=== PATIENT | female | born 1995 | race African-American/Black ===

== ENCOUNTER 2017-09-05 03:13 | Emergency (ER) | payer OTHER ==
[~2017-09-05] VITALS: Ht 170.2 cm; Wt 128.8 kg
[2017-09-05] MEDS ORDERED: FERRAPLUS 90 PO (03:25)
[2017-09-05] MEDS ORDERED: PROAIR HFA108 MCG/AC IN (03:25)
[2017-09-05] MEDS ORDERED: PROVENTIL HFA IN (03:39)
--- NOTE | 2017-09-05 03:57 | NUR ---
BREATHING TREATMENT GIVEN FOR SHORTNESS OF BREATH. BREATHING TECH. FOR GOOD DEPOSITION TO THE LUNGS.
[2017-09-05 05:16] VITALS: BP 124/78
== END 2017-09-05 04:10 | disposition home or self-care (01) | DRG 203 ==
LOC: ED 03:13
DX: J45.901 Unspecified asthma with (acute) exacerbation (principal); R05 Cough; R06.02 Shortness of breath

== ENCOUNTER 2017-11-29 21:28 | Emergency (ER) | payer OTHER ==
[~2017-11-29] VITALS: Ht 170.2 cm; Wt 126.8 kg
[~2017-11-29 21:28] MED LIST: FERRAPLUS 90 PO; PROAIR HFA108 MCG/AC IN; PROVENTIL HFA IN
[2017-11-29 22:17] LABS: URINE BILIRUBIN - DIPSTICK NEGATIVE (NEGATIVE); URINE BLOOD DIPSTICK NEGATIVE (NEGATIVE); URINE COLOR YELLOW; URINE GLUCOSE - DIPSTICK NEGATIVE (NEGATIVE); URINE KETONE NEGATIVE (NEGATIVE); URINE LEUK ESTERASE NEGATIVE (NEGATIVE); URINE NITRITE - DIPSTICK NEGATIVE (Negative); URINE PH 6.5 (4.5-8.0); URINE PROTEIN - DIPSTICK NEGATIVE (NEG-TRACE); URINE SPECIFIC GRAVITY >=1.030; URINE UROBILINOGEN - DIPSTICK 0.2 E.U./dL (0.2)
[2017-11-29 22:20] LABS: URINE CLARITY CLEAR
[2017-11-29 22:41] LABS: HEMATOCRIT 36.9 % (37.0-47.0); HEMOGLOBIN 11.6 g/dl (12.0-16.0); IMMATURE GRANULOCYTES 0.4 % (0.0-1.0); MEAN CELL VOLUME 95.8 fL CALC (80.0-100.0); MEAN CORPUSCULAR HGB 30.1 pG CALC (26.0-32.0); MEAN CORPUSCULAR HGB CONC 31.4 g/L CALC (32.0-36.0); NEUT# 3.29 thou/uL (2.00-7.15); RED BLOOD COUNT 3.85 mill/uL (4.20-5.60); RED CELL DISTRI WIDTH 12.9 % (11.5-15.5)
[2017-11-29 22:50] LABS: ALKALINE PHOSPHATASE 98 u/l (38-126); ANION GAP 17 (6-22 (CALC)); BILIRUBIN, TOTAL 0.4 mg/dL (0.0-1.4); BUN 16 mg/dL (7-17); BUN/CREATININE RATIO 18 (12-20 (CALC)); CARBON DIOXIDE 24 mmol/l (22-30); CHLORIDE 106 mmol/l (95-108); CREATININE 0.9 mg/dL (0.5-1.0); GFR > 60 ML/MIN (>=60 (CALC)); GFR FOR AFR.AMER. > 60 ML/MIN (>=60 (CALC)); POTASSIUM 4.2 mmol/l (3.5-5.1); SGOT/AST 24 u/l (14-36); SGPT/ALT 38 u/l (9-52); SODIUM 143 mmol/l (137-146); TOTAL PROTEIN 7.6 g/dL (6.3-8.2)
[2017-11-30] MEDS ORDERED: FLEXERIL PO (00:34)
[2017-11-30] MEDS ORDERED: ULTRAM50 M1 PO (00:34)
[2017-11-30 00:40] VITALS: BP 108/52
== END 2017-11-30 00:48 | disposition home or self-care (01) | DRG 552 ==
LOC: ED 21:28
PROVIDERS: Emergency Medicine
DX: M47.816 Spondylosis without myelopathy or radiculopathy, lumbar region (principal); J45.909 Unspecified asthma, uncomplicated; M51.36 Other intervertebral disc degeneration, lumbar region

== ENCOUNTER 2019-02-06 16:02 | Emergency (ER) | payer SELFPAY ==
[~2019-02-06] VITALS: Ht 170.2 cm; Wt 110.0 kg
[~2019-02-06 16:02] MED LIST changes: +FLEXERIL PO; +ULTRAM50 M1 PO
[2019-02-06 17:00] LABS: HEMATOCRIT 35.1 % (37.0-47.0); HEMOGLOBIN 10.8 g/dl (12.0-16.0); IMMATURE GRANULOCYTES 0.3 % (0.0-5.0); MEAN CELL VOLUME 94.4 fL CALC (80.0-100.0); MEAN CORPUSCULAR HGB CONC 30.8 g/L CALC (32.0-36.0); NEUT# 2.81 thou/uL (2.00-7.15); RED BLOOD COUNT 3.72 mill/uL (4.20-5.60); RED CELL DISTRI WIDTH 13.3 % (11.5-15.5)
[2019-02-06 17:01] LABS: URINE BILIRUBIN - DIPSTICK NEGATIVE (NEGATIVE); URINE BLOOD DIPSTICK NEGATIVE (NEGATIVE); URINE COLOR YELLOW; URINE GLUCOSE - DIPSTICK NEGATIVE (NEGATIVE); URINE KETONE NEGATIVE (NEGATIVE); URINE LEUK ESTERASE TRACE (NEGATIVE); URINE NITRITE - DIPSTICK NEGATIVE (Negative); URINE PROTEIN - DIPSTICK NEGATIVE (NEG-TRACE); URINE SPECIFIC GRAVITY 1.025; URINE UROBILINOGEN - DIPSTICK 0.2 E.U./dL (0.2)
[2019-02-06 17:19] LABS: ALKALINE PHOSPHATASE 96 u/l (38-126); ANION GAP 13 (6-22 (CALC)); BILIRUBIN, TOTAL 0.3 mg/dL (0.0-1.4); BUN 12 mg/dL (7-17); BUN/CREATININE RATIO 17 (12-20 (CALC)); CARBON DIOXIDE 25 mmol/l (22-30); CHLORIDE 107 mmol/l (95-108); CREATININE 0.7 mg/dL (0.5-1.0); GFR > 60 ML/MIN (>=60 (CALC)); GFR FOR AFR.AMER. > 60 ML/MIN (>=60 (CALC)); LIPASE 52 u/l (23-300); POTASSIUM 4.3 mmol/l (3.5-5.1); SGOT/AST 25 u/l (14-36); SODIUM 141 mmol/l (137-146); TOTAL PROTEIN 7.2 g/dL (6.3-8.2)
[2019-02-06] MEDS ORDERED: ZOFRAN4 MG/TAB PO (17:37)
[2019-02-06 17:41] VITALS: BP 121/82
== END 2019-02-06 17:46 | disposition home or self-care (01) | DRG 563 ==
LOC: ED 16:02
DX: S39.011A Strain of muscle, fascia and tendon of abdomen, initial encounter (principal); R11.0 Nausea; X58.XXXA Exposure to other specified factors, initial encounter

== ENCOUNTER 2019-02-27 23:01 | Emergency (ER) | payer OTHER ==
[~2019-02-27] VITALS: Ht 170.2 cm; Wt 132.2 kg
[~2019-02-27 23:01] MED LIST changes: +ZOFRAN4 MG/TAB PO
[2019-02-28 01:45] VITALS: BP 134/81
== END 2019-02-28 01:45 | disposition home or self-care (01) | DRG 552 ==
LOC: ED 23:01
DX: M54.5 Low back pain (principal); G89.29 Other chronic pain; V49.40XA Driver injured in collision with unspecified motor vehicles in traffic accident, initial encounter

== ENCOUNTER 2019-04-22 08:56 | Emergency (ER) | payer SELFPAY ==
[~2019-04-22] VITALS: Ht 170.2 cm; Wt 131.4 kg
[2019-04-22] MEDS ORDERED: PROVENTIL108 MCG/AC IN (09:26)
[2019-04-22] MEDS ORDERED: ZITHROMAX250 MG PO (09:26)
[2019-04-22] MEDS ORDERED: ONDANSETRON4 MG PO (09:26)
[2019-04-22 10:12] VITALS: BP 141/61
== END 2019-04-22 10:05 | disposition home or self-care (01) | DRG 203 ==
LOC: ED 08:56
DX: J45.909 Unspecified asthma, uncomplicated (principal); R07.81 Pleurodynia; R11.2 Nausea with vomiting, unspecified

== ENCOUNTER 2019-05-12 08:05 | Emergency (ER) | payer OTHER ==
[~2019-05-12] VITALS: Ht 170.2 cm; Wt 125.0 kg
[~2019-05-12 08:05] MED LIST changes: +ONDANSETRON4 MG PO; +PROVENTIL108 MCG/AC IN; +ZITHROMAX250 MG PO
[2019-05-12] MEDS ORDERED: NAPROXEN500 MG PO ×2 (10:17→13:11)
[2019-05-12 10:33] VITALS: BP 118/68
== END 2019-05-12 10:25 | disposition home or self-care (01) | DRG 552 ==
LOC: ED 08:05
DX: S13.9XXA Sprain of joints and ligaments of unspecified parts of neck, initial encounter (principal); S33.5XXA Sprain of ligaments of lumbar spine, initial encounter; V49.40XA Driver injured in collision with unspecified motor vehicles in traffic accident, initial encounter

== ENCOUNTER 2019-06-17 21:11 | Emergency (ER) | payer SELFPAY ==
[~2019-06-17] VITALS: Ht 170.2 cm; Wt 132.2 kg
[~2019-06-17 21:11] MED LIST changes: +NAPROXEN500 MG PO
[2019-06-17 21:51] LABS: URINE BILIRUBIN - DIPSTICK NEGATIVE (NEGATIVE); URINE BLOOD DIPSTICK TRACE-INTACT (NEGATIVE); URINE COLOR YELLOW; URINE GLUCOSE - DIPSTICK NEGATIVE (NEGATIVE); URINE KETONE NEGATIVE (NEGATIVE); URINE LEUK ESTERASE NEGATIVE (NEGATIVE); URINE NITRITE - DIPSTICK NEGATIVE (Negative); URINE PH 5.5 (4.5-8.0); URINE PROTEIN - DIPSTICK NEGATIVE (NEG-TRACE); URINE SPECIFIC GRAVITY >=1.030; URINE UROBILINOGEN - DIPSTICK 0.2 E.U./dL (0.2)
[2019-06-17 21:56] LABS: HEMATOCRIT 35.9 % (37.0-47.0); HEMOGLOBIN 11.5 g/dl (12.0-16.0); IMMATURE GRANULOCYTES 0.5 % (0.0-5.0); MEAN CELL VOLUME 93.7 fL CALC (80.0-100.0); NEUT# 2.91 thou/uL (2.00-7.15); RED BLOOD COUNT 3.83 mill/uL (4.20-5.60)
[2019-06-17 22:06] LABS: ALBUMIN 3.8 g/dL (3.2-5.0); ALKALINE PHOSPHATASE 93 u/l (38-126); AMYLASE 63 u/l (30-110); ANION GAP 12 (6-22 (CALC)); BILIRUBIN, TOTAL 0.3 mg/dL (0.0-1.4); BUN 13 mg/dL (7-17); BUN/CREATININE RATIO 13 (12-20 (CALC)); CARBON DIOXIDE 26 mmol/l (22-30); CHLORIDE 106 mmol/l (95-108); CREATININE 0.9 mg/dL (0.5-1.0); GFR > 60 ML/MIN (>=60 (CALC)); GFR FOR AFR.AMER. > 60 ML/MIN (>=60 (CALC)); LIPASE 68 u/l (23-300); POTASSIUM 4.2 mmol/l (3.5-5.1); SGOT/AST 22 u/l (14-36); SODIUM 139 mmol/l (137-146); TOTAL PROTEIN 7.2 g/dL (6.3-8.2)
[2019-06-18 00:17] VITALS: BP 120/64
== END 2019-06-18 00:29 | disposition home or self-care (01) | DRG 392 ==
LOC: ED 21:11
PROVIDERS: Emergency Medicine
DX: R10.9 Unspecified abdominal pain (principal); R19.7 Diarrhea, unspecified; R11.0 Nausea
CPT/HCPCS: Q9967

== ENCOUNTER 2020-09-03 19:57 | Emergency (ER) | payer SELFPAY ==
[~2020-09-03] VITALS: Ht 170.2 cm; Wt 136.0 kg
[2020-09-03 21:54] LABS: HEMATOCRIT 38.8 % (37.0-47.0); HEMOGLOBIN 11.9 g/dl (12.0-16.0); IMMATURE GRANULOCYTES 0.3 % (0.0-5.0); MEAN CELL VOLUME 95.6 fL CALC (80.0-100.0); MEAN CORPUSCULAR HGB 29.3 pG CALC (26.0-32.0); MEAN CORPUSCULAR HGB CONC 30.7 g/dL CAL (32.0-36.0); NEUT# 3.56 thou/uL (2.00-7.15); RED BLOOD COUNT 4.06 mill/uL (4.20-5.60); RED CELL DISTRI WIDTH 12.9 % (11.5-15.5)
[2020-09-03 21:58] LABS: URINE BILIRUBIN - DIPSTICK NEGATIVE (NEGATIVE); URINE BLOOD DIPSTICK LARGE (NEGATIVE); URINE COLOR YELLOW; URINE GLUCOSE - DIPSTICK NEGATIVE (NEGATIVE); URINE KETONE NEGATIVE (NEGATIVE); URINE LEUK ESTERASE NEGATIVE (NEGATIVE); URINE NITRITE - DIPSTICK NEGATIVE (Negative); URINE PROTEIN - DIPSTICK NEGATIVE (NEG-TRACE); URINE SPECIFIC GRAVITY >=1.030; URINE UROBILINOGEN - DIPSTICK 0.2 E.U./dL (0.2)
[2020-09-03 22:06] LABS: URINE RBC 0-2 RBC/hpf (0-5)
[2020-09-03 22:07] LABS: URINE SQUAMOUS EPITHELIAL CELL FEW EPI/hpf (0-FEW)
[2020-09-03 22:12] LABS: ALBUMIN 4.2 g/dL (3.2-5.0); ALKALINE PHOSPHATASE 107 u/l (38-126); AMYLASE 62 u/l (30-110); ANION GAP 12 (6-22 (CALC)); BILIRUBIN, TOTAL 0.3 mg/dL (0.0-1.4); BUN 14 mg/dL (7-17); BUN/CREATININE RATIO 18 (12-20 (CALC)); CARBON DIOXIDE 26 mmol/l (22-30); CHLORIDE 105 mmol/l (95-108); CREATININE 0.8 mg/dL (0.5-1.0); GFR > 60 ML/MIN (>=60 (CALC)); GFR FOR AFR.AMER. > 60 ML/MIN (>=60 (CALC)); LIPASE 78 u/l (23-300); POTASSIUM 3.9 mmol/l (3.5-5.1); SGOT/AST 25 u/l (14-36); SODIUM 139 mmol/l (137-146); TOTAL PROTEIN 7.6 g/dL (6.3-8.2)
[2020-09-03 22:55] VITALS: BP 136/86
== END 2020-09-03 22:44 | disposition home or self-care (01) | DRG 103 ==
LOC: ED 19:57
DX: R51.9 Headache, unspecified (principal); J45.909 Unspecified asthma, uncomplicated; Z20.822 Contact with and (suspected) exposure to COVID-19

== ENCOUNTER 2021-07-01 05:41 | Emergency (ER) | payer OTHER ==
[~2021-07-01] VITALS: Ht 170.2 cm; Wt 136.0 kg
[2021-07-01 08:12] VITALS: BP 122/79
== END 2021-07-01 08:20 | disposition home or self-care (01) | DRG 556 ==
LOC: ED 05:41
DX: M25.552 Pain in left hip (principal); J45.909 Unspecified asthma, uncomplicated; V40.5XXA Car driver injured in collision with pedestrian or animal in traffic accident, initial encounter